=== PATIENT | male | born 1980 | race Caucasian/White ===

== ENCOUNTER 2019-05-28 10:42 | Emergency (ER) | payer BC, SELFPAY ==
--- NOTE | ~2019-05-28 | CT_ITS ---
EXAMINATION: CT facial bones w con DATE: 05/28/2019 11:59 INDICATION: Saw kicked back and struck face TECHNIQUE: Computed tomography (CT) of the facial bones and maxillofacial region was performed withou t intravenous contrast. Automated exposure control and iterative reconstruction technique were employ ed. Exam dose: 279.37 mGy-cm total exam DLP. COMPARISON: None. FINDINGS: There is a fluid level consistent with blood in the right maxillary sinus. There are fractures of the anterior and lateral love of the right maxillary sinus. There is fracture of the right infraorbital rim. There is subcutaneous emphysema and soft tissue swelling of the right facial soft tissues The frontozygomatic sutures and zygomatic arches are intact. Normal alignment at the temporal mandibu lar joints. No mandibular fracture is detected. IMPRESSION: Right infraorbital rim and right anterior and lateral maxillary sinus wall fractures Reviewed, dictated and finalized at [facility]. Reviewed, dictated and finalized at [facility]. IMPRESSION: Right infraorbital rim and right anterior and lateral maxillary si nus wall fractures
[2019-05-28 10:51] VITALS: BP 148/97; PULSE 125; RESP 18; TEMP 36.8; O2SAT 100
--- NOTE | 2019-05-28 10:55 | ED.GENADULT ---
HPI - General Adult General Chief complaint: Wound/Laceration <Jasbir Borden PA-C - Last Filed: 05/28/19 11:44> Stated complaint: Saw through face <Jasbir Borden PA-C - Last Filed: 05/28/19 11:44> Time Seen by Provider: 05/28/19 10:46 <Jasbir Borden PA-C - Last Filed: 05/28/19 11:44> Source: patient <Jasbir Borden PA-C - Last Filed: 05/28/19 11:44> Mode of arrival: ambulatory <Jasbir Borden PA-C - Last Filed: 05/28/19 11:44> Limitations: no limitations <Jasbir Borden PA-C - Last Filed: 05/28/19 11:44> History of Present Illness HPI narrative: Patient is a 38-year-old male presents to emergency department with lacerations to the right side of the face patient was using a concrete saw when it kicked back causing lacerations to the right cheek patient notes numbness and moderate aching pain worse with touch and movement patient presents per private vehicle noting that his tetanus is up-to-date. Patient has difficulty with smiling on the right side and has numbness as well as noted <Jasbir Borden PA-C - Last Filed: 05/28/19 11:44> Related Data Home medications: Home Medications Medication Instructions Recorded Confirmed lisinopril 20 mg tablet 20 mg PO DAILY 03/22/19 <Jasbir Borden PA-C - Last Filed: 05/28/19 11:44> Allergies/adverse reactions: Allergies Allergy/AdvReac Type Severity Reaction Status Date / Time No Known Allergies Allergy Verified 05/28/19 11:08 <Jasbir Borden PA-C - Last Filed: 05/28/19 11:44> Review of Systems Review of Systems: All systems reviewed & are unremarkable except as noted in HPI and below <Jasbir Borden PA-C - Last Filed: 05/28/19 11:44> PMF Past Medical History Medical History: Medical History (Updated 05/28/19 @ 11:09 by Jasbir Borden PA-C) Heart burn High cholesterol Hypertension <MITCHELL Canseco Last Filed: 05/28/19 11:44> Surgical History Surgical History: Surgical History (Updated 05/08/19 @ 12:13 by Marah Acuna MA) Hx of tonsillectomy <Jasbir Borden PA-C - Last Filed: 05/28/19 11:44> Social History Social History: Social History Smoking status: Former smoker Tobacco type: smokeless tobacco Alcohol intake: current Substance use: never <Jasbir Borden PA-C - Last Filed: 05/28/19 11:44> Exam Narrative: Exam Narrative: GENERAL: Well-appearing, well-nourished, and in no acute distress. HEAD: Normocephalic, atraumatic. EYES: PERRLA and EOMI. ENT: Nares clear, no rhinorrhea or epistaxis. Mucous membranes moist. Oropharynx without tonsillar hypertrophy exudate or other lesions. CHEST: Clear to auscultation. No respiratory distress. No wheezes rales or rhonchi HEART: Regular rate and rhythm. No murmur heard. . EXTREMITIES: Normal range of motion. No edema. SKIN: Warm, dry, no rash. Patient with 2 large lacerations involving the right side of the face extending into the deep tissues that are not through and through 1 of which runs from the angle of the nose along to the angle of the mandible and then a another laceration just above it extending in the subcutaneous tissues that runs along the cheek to just below the ear NEURO: No focal deficits aside from inability to perform motor with smiling on the right side only. Alert and oriented x3. Cranial nerves II through XII grossly intact PSYCH: Normal mood and affect. <Jasbir Borden PA-C - Last Filed: 05/28/19 11:44> Course Course Emergency Course: Patient in the room aware of case findings treatment plan and diagnosis <Jasbir Borden PA-C - Last Filed: 05/28/19 11:44> PHYSICIAN'S AIDE/PA Physician Supervision For this patient encounter, I reviewed the PHYSICIAN'S AIDE or PA documentation, treatment plan, and medical decision making; and I had [id number] time with this patient. GENERAL: Anxious-appearing, wel
[2019-05-28] MEDS: MORPHINE SULFATE 4 MG/ML INJ IV PUSH (10:57)
[2019-05-28] MEDS: ceFAZolin 2 GM/D5W 50 ML 2 GM/50 ML BAG IVPB (11:22)
[2019-05-28] MEDS: TETANUS,DIPHTHERIA,AC PERTUSSIS ADULT 0.5 ML (ADACEL) IM (11:38)
--- NOTE | 2019-05-28 11:50 | PC.NURSE ---
Pt to CT scan via stretcher, pt at bedside, discussed POC.
[2019-05-28 11:56] LABS: Estimated CRCL calculation 84 ml/min; Estimated Glomerular Filt Rate > 60
[2019-05-28 12:38] VITALS: BP 156/95; PULSE 97; RESP 18; O2SAT 100
== END 2019-05-28 12:40 | disposition short-term general hospital (02) ==
PROVIDERS: Emergency Provider Emergency Medicine; PCP Family Medicine
DX: S01.411A Laceration without foreign body of right cheek and temporomandibular area, initial encounter (principal); W29.8XXA Contact with other powered hand tools and household machinery, initial encounter; Z23 Encounter for immunization; K21.9 Gastro-esophageal reflux disease without esophagitis; E78.00 Pure hypercholesterolemia, unspecified; I10 Essential (primary) hypertension
CPT/HCPCS: 36415; 70487; 90471; 90715; 96365; 96375; 99284; J0690; J2270; Q9967

== ENCOUNTER 2022-04-15 00:49 | Day surgery (SDC) | payer BC, SELFPAY ==
[2022-03-31 14:02] VITALS: BMI 25.9
--- NOTE | 2022-04-14 19:39 | P.HP_ITS ---
History of Present Illness History of Present Illness Consent: Risks, benefits, and alternatives have been discussed and questions answered. Patient agrees to proceed with procedure. Chief complaint: occult blood in stool Narrative: El Berkowitz is a 41 year old male who has recurrent rectal or anal bleeding. He feels a bump in the posterior aspect of his anus near the coccyx. Every down that this will swell, become uncomfortable, and drained some blood for couple of days. Taking a warm Sitz baths helps it. This has been going on for couple of years. Only once, recently, he passed blood with his bowel movement. He has had no other gastrointestinal symptoms. His bowel movements are fairly regular, soft. He does not strain when having a bowel movement but admits to sitting on the toilet with his home for an extended period of time Review of Systems Review of Systems: All systems reviewed & are unremarkable except as noted in HPI and below PMFSH Past Medical History Medical History Generalized anxiety disorder Heart burn High cholesterol Hypertension Surgical History Surgical History Hx of tonsillectomy [place] teeth extracted Family History Family History Grandparent Hypertension Father Family history of elevated blood lipids Mother Family history of elevated blood lipids Social History Social History Smoking status: Former smoker Tobacco type: smokeless tobacco Smokeless tobacco user: chewing tobacco Alcohol intake: current Drinks per week: 1 Alcohol use details: Social Substance use: current Substance use type: marijuana Last use: 2x weekly Living arrangements: with family Occupation/Education: occupation Gender identity (if verbalized by the patient): Male Spiritual care concerns: No Meds Home Medications and Allergies Home Medications Medication Instructions Recorded Confirmed Type metoprolol succinate 100 mg 100 mg PO DAILY 03/28/22 04/15/22 History tablet,extended release 24 hr alprazolam 0.5 mg tablet 0.5 mg PO DAILY PRN Anxiety 03/31/22 04/15/22 History atorvastatin 20 mg tablet 20 mg PO DAILY 03/31/22 04/15/22 History omeprazole 20 mg capsule,delayed 20 mg PO DAILY 03/31/22 04/15/22 History release Allergies Allergy/AdvReac Type Severity Reaction Status Date / Time No Known Allergies Allergy Verified 04/15/22 10:00 Exam Resp: Auscultation: clear to auscultation bilaterally Cardio: Rate: regular rate Rhythm: regular rhythm GI: GI Palp: Yes Soft to palpation and No Tenderness to palpation present (GI) Assessment and Plan Assessment and plan (1) Rectal bleeding: Code(s): K62.5 - Hemorrhage of anus and rectum Status: Acute Assessment and Plan: Colonoscopy with possible biopsy or polypectomy or cautery or injection of substances.
[2022-04-15 09:55] VITALS: BP 158/106; PULSE 73; RESP 18; TEMP 36.4; O2SAT 100; BMI 25.8
--- NOTE | 2022-04-15 10:02 | P.PNAN_ITS ---
Anes - Initial Pre Proc Eval Procedure: Operation Date: 04/15/22 11:15 Proposed Procedures p Colonoscopy - Gabriel Martínez MD Date/Time: 04/15/22 10:02 Surgeon: Gabriel Martínez MD Pre Op Diagnosis: occult blood in stool Patient Data Age: 41 Gender: M Height: 1.7 m Weight: 75 kg Allergies Allergy/AdvReac Type Severity Reaction Status Date / Time No Known Allergies Allergy Verified 04/15/22 10:00 Home Medications Medication Instructions Recorded Confirmed Type metoprolol succinate 100 mg 100 mg PO DAILY 03/28/22 04/15/22 History tablet,extended release 24 hr alprazolam 0.5 mg tablet 0.5 mg PO DAILY PRN Anxiety 03/31/22 04/15/22 History atorvastatin 20 mg tablet 20 mg PO DAILY 03/31/22 04/15/22 History omeprazole 20 mg capsule,delayed 20 mg PO DAILY 03/31/22 04/15/22 History release Patient hx anesthesia problems: none Family hx anesthesia problems: none Results Review: All pre-operative results and documents have been reviewed as part of the pre- operative evaluation. [facility] Past Medical History Medical History Generalized anxiety disorder Heart burn High cholesterol Hypertension Surgical History Surgical History Hx of tonsillectomy [place] teeth extracted Family History Family History Grandparent Hypertension Father Family history of elevated blood lipids Mother Family history of elevated blood lipids Social History Social History Smoking status: Former smoker Tobacco type: smokeless tobacco Smokeless tobacco user: chewing tobacco Alcohol intake: current Drinks per week: 1 Alcohol use details: Social Substance use: current Substance use type: marijuana Last use: 2x weekly Living arrangements: with family Occupation/Education: occupation Gender identity (if verbalized by the patient): Male Spiritual care concerns: No Anes - Eval Final PreProcedure Day of Procedure 04/15/22 10:02 Patient weight: normal Heart: regular rate and rhythm Lungs: clear to auscultation Airway: Mallampati scale class II Neurological: alert and oriented Last oral intake: >/= 8 hours ASA classification: II Emergent: no Anesthetic plan: proceed Anesthesia type and monitoring: general GIVS and standard monitoring Results Review: All pre-operative results and documents have been reviewed as part of the pre- operative evaluation. Informed Consent: The patient's anesthetic plan and its attendant risks and benefits were discussed with the patient/family/POA. Questions were solicited and answers provided to the satisfaction of the patient/family/POA.
[2022-04-15] MEDS: LACTATED RINGERS 1,000 ML 150 ML IV CONT (10:13)
[2022-04-15] MEDS: SIMETHICONE ORAL SUSPENSION 20 MG/0.3 ML 30 ML BOTTLE 0.6 ML IRRIGATION (11:09)
[2022-04-15 11:20] VITALS: BP 144/90; PULSE 79; RESP 21; O2SAT 99
[2022-04-15 11:30] VITALS: BP 164/116; PULSE 80; RESP 18; O2SAT 99
[2022-04-15 11:40] VITALS: BP 155/98; PULSE 74; RESP 20; O2SAT 99
== END 2022-04-15 11:51 | disposition home or self-care (01) ==
PROVIDERS: PCP Physician Assistant; Visit Provider Internal Medicine Gastroenterology
PROC: 0DJD8ZZ Inspection of Lower Intestinal Tract, Via Natural or Artificial Opening Endoscopic (ICD-10-PCS; CPT 45378; principal; 2022-04-15 11:15)
DX: K60.3 Anal fistula (principal); K64.4 Residual hemorrhoidal skin tags; K64.8 Other hemorrhoids; I10 Essential (primary) hypertension; E78.00 Pure hypercholesterolemia, unspecified; F41.1 Generalized anxiety disorder; F17.220 Nicotine dependence, chewing tobacco, uncomplicated; F12.90 Cannabis use, unspecified, uncomplicated
CPT/HCPCS: 45378; J2704; J7120